=== PATIENT | female | born 1975 | race Two or more races ===

== ENCOUNTER 2019-11-18 11:58 | Emergency (ER) | payer BC ==
[~2019-11-18] VITALS: Ht 162.6 cm; Wt 61.2 kg
[2019-11-18 12:01] VITALS: BP 119/76
== END 2019-11-18 13:11 | disposition home or self-care (01) ==
LOC: ED 12:52
DX: J02.8 Acute pharyngitis due to other specified organisms (principal); B97.89 Other viral agents as the cause of diseases classified elsewhere
CPT/HCPCS: 99281

== ENCOUNTER → 2020-01-24 | Outpatient (CLI) | payer BC | END | disposition home or self-care (01) | LOC: CFH 12:43 → EDSTATUS 13:00 | PROVIDERS: ATTEND Obstetrics & Gynecology | DX: Z12.31 Encounter for screening mammogram for malignant neoplasm of breast (principal) | CPT/HCPCS: 77067 ==

== ENCOUNTER → 2021-01-18 | Outpatient (CLI) | payer BC | END | disposition home or self-care (01) | LOC: CFH 08:08 | PROVIDERS: ATTEND Obstetrics & Gynecology | DX: Z12.31 Encounter for screening mammogram for malignant neoplasm of breast (principal) | CPT/HCPCS: 77063; 77067 ==